=== PATIENT | female | born 1945 | race Caucasian/White ===

== ENCOUNTER 2021-01-25 08:45 | Emergency (ER) | payer MEDICARE, BC ==
[2021-01-25 08:56] VITALS: BP 177/76; PULSE 82
[2021-01-25] MEDS ORDERED: Aspirin 81 MG Tab.Chew PO ONE (08:58)
--- NOTE | 2021-01-25 10:27 | EDM.PDOC ---
ED HPI GENERAL MEDICAL PROBLEM - General Chief Complaint: Chest Pain Stated Complaint: CHEST PAIN Time Seen by Provider: 01/25/21 08:55 Source of Information: Reports: Patient History Limitations: Reports: No Limitations - History of Present Illness INITIAL COMMENTS - FREE TEXT/NARRATIVE: pt developed a tigh band around her chest. She felt weak and she was a little shakey. She did pull some weeds 2 days ago. She was not sob and she did not feel dizzy. Onset: Today, Sudden Duration: Hour(s): Location: Reports: Chest, Other (pt had a tight band around her chest. ) Associated Symptoms: Reports: Chest Pain, Weakness Chest Pain Score (Numeric/FACES): 6 - Related Data Allergies Allergy/AdvReac Type Severity Reaction Status Date / Time hydrocodone [From [place]] Allergy Vomiting Verified 01/25/21 08:56 Home Meds: Home Meds Ascorbic Acid 1,000 mg PO DAILY 04/12/14 [History] FLUoxetine HCl [Fluoxetine HCl] 20 mg PO DAILY 04/12/14 [History] Glucosam/Chond/Collagen/Hyalur [Glucosamine Chondroitin] 1 tab PO BID 04/12/14 [History] Levothyroxine Sodium [Levoxyl] 50 mcg PO DAILY 04/12/14 [History] Loratadine 10 mg PO DAILY 04/12/14 [History] Multivitamin [Multi-Vitamin Daily] 1 tab PO DAILY 04/12/14 [History] Niacin 500 mg PO DAILY 04/12/14 [History] [place]-3 Fatty Acids [[place]-3] 1,000 mg PO DAILY 04/12/14 [History] Pravastatin [Pravachol] 20 mg PO DAILY 04/12/14 [History] Vitamin B Complex [B Complex] 1 tab PO DAILY 04/12/14 [History] Calcium Carb, Citrate/Vit D3 [Calcium + D3 ER Tablet] 1 tab PO DAILY 04/16/20 [History] Cholecalciferol (Vitamin D3) [Vitamin D3] 2,000 units PO DAILY 04/16/20 [History] Magnesium 250 mg PO DAILY 04/16/20 [History] Ubidecarenone [Co Q-10] 100 mg PO DAILY 04/16/20 [History] Past Medical History HEENT History: Reports: Impaired Vision Cardiovascular History: Reports: High Cholesterol Respiratory History: Reports: Bronchitis, Recurrent Gastrointestinal History: Reports: Colon Polyp Genitourinary History: Reports: UTI, Recurrent [employer] REPRESENT[employer] History: Reports: Dysfunctional Uterine Bleeding, Musculoskeletal History: Reports: Back Pain, Chronic Psychiatric History: Reports: Depression Endocrine/Metabolic History: Reports: Hypothyroidism, Obesity/BMI 30+ Hematologic History: Reports: Blood Transfusion(s), Other (See Below) Other Hematologic History: needs blood warmed prior to transfusions - Infectious Disease History Infectious Disease History: Reports: Chicken Pox, Influenza, Measles, Mumps - Past Surgical History GI Surgical History: Reports: Cholecystectomy, Colonoscopy, Polypectomy Female Surgical History: Reports: Hysterectomy, Oophorectomy Musculoskeletal Surgical History: Reports: Arthroscopic Knee, Shoulder Surgery, Other (See Below) Other Musculoskeletal Surgeries/Procedures:: back surgery Social & Family History - Tobacco Use Tobacco Use Status *Q: Never Tobacco User ED ROS GENERAL - Review of Systems Review Of Systems: See Below Constitutional: Reports: Weakness HEENT: Reports: No Symptoms Respiratory: Reports: No Symptoms Cardiovascular: Reports: Chest Pain, Other (pt had a tight band around her chest. ) Endocrine: Reports: No Symptoms GI/Abdominal: Reports: No Symptoms : Reports: No Symptoms Musculoskeletal: Reports: No Symptoms Skin: Reports: No Symptoms Neurological: Reports: No Symptoms Psychiatric: Reports: Anxiety ED EXAM, GENERAL - Physical Exam Exam: See Below Free Text/Narrative:: pt developed a tight band around her chest. She felt weak and a little sweaty. She has no cardiac history. Exam Limited By: No Limitations General Appearance: Alert, Anxious, Mild Distress, Other (pt is not sweaty. ) Ears: Normal TMs Nose: Nasal Deformity Throat/Mouth: Normal Inspection Head: Atraumatic Neck: Normal Inspection Respiratory/Chest: No Respiratory Distress Cardiovascular: Regular Rate, Rhythm GI/Abdominal: Soft, Non-Tender (Female) Exam: Deferred Rectal (Female) Exam: Deferred Back Exam: Other (pt has marked tenderness by the rt scapula and shoulder area. ) Extremities: Normal Inspection Neurological: Alert, Oriented, Normal Cognition Course - Vital Signs Last Recorded V/S: Last Vital Signs Temp 36.3 C 01/25/21 08:53 Pulse 82 01/25/21 08:53 Resp 20 01/25/21 08:53 BP 177/76 H 01/25/21 08:53 Pulse Ox 96 01/25/21 08:53 - Orders/Labs/Meds Orders: Active Orders 24 hr Category Date Time Status EKG Documentation Completion [RC] ASDIRECTED Care 01/25/21 08:57 Active Chest 1V Frontal [CR] Stat Exams 01/25/21 08:57 Taken EKG 12 Lead [EK] Routine Ther 01/25/21 08:57 Ordered Labs: Laboratory Tests 01/25/21 01/25/21 01/25/21 Range/Units 08:55 08:55 08:55 WBC 7.5 (4.5-11.0) K/uL RBC 5.03 (3.30-5.50) M/uL Hgb 15.3 H (12.0-15.0) g/dL Hct 44.2 (36.0-48.0) % MCV 88 (80-98) fL MCH 30 (27-31) pg MCHC 35 (32-36) % Plt Count 271 (150-400) K/uL Neut % (Auto) 52.4 (36-66) % Lymph % (Auto) 32.9 (24-44) % Glad[place] % (Auto) 8.4 H (2-6) % Eos % (Auto) 5.4 H (2-4) % Baso % (Auto) 0.9 (0-1) % Sodium 142 (140-148) mmol/L Potassium 3.7 (3.6-5.2) mmol/L Chloride 104 (100-108) mmol/L Carbon Dioxide 27 (21-32) mmol/L Anion Gap 11.0 (5.0-14.0) mmol/L BUN 12 (7-18) mg/dL Creatinine 0.9 (0.6-1.0) mg/dL Est Cr Clr Drug Dosing 43.37 mL/min Estimated GFR (MDRD) > 60 (>60) Glucose 97 (74-106) mg/dL Calcium 9.8 (8.5-10.1) mg/dL Total Bilirubin 0.6 (0.2-1.0) mg/dL AST 23 (15-37) U/L ALT 29 (12-78) U/L Alkaline Phosphatase 83 (46-116) U/L Troponin I < 0.017 (0.000-0.056) ng/mL Total Protein 7.5 (6.4-8.2) g/dL Albumin 3.8 (3.4-5.0) g/dL Globulin 3.7 H (2.3-3.5) g/dL Albumin/Globulin Ratio 1.0 L (1.2-2.2) TSH, Ultra Sensitive (0.358-3.740) uIU/mL 01/25/21 Range/Units 08:55 WBC (4.5-11.0) K/uL RBC (3.30-5.50) M/uL Hgb (12.0-15.0) g/dL Hct (36.0-48.0) % MCV (80-98) fL MCH (27-31) pg MCHC (32-36) % Plt Count (150-400) K/uL Neut % (Auto) (36-66) % Lymph % (Auto) (24-44) % Gladwin % (Auto) (2-6) % Eos % (Auto) (2-4) % Baso % (Auto) (0-1) % Sodium (140-148) mmol/L Potassium (3.6-5.2) mmol/L Chloride (100-108) mmol/L Carbon Dioxide (21-32) mmol/L Anion Gap (5.0-14.0) mmol/L BUN (7-18) mg/dL Creatinine (0.6-1.0) mg/dL Est Cr Clr Drug Dosing mL/min Estimated GFR (MDRD) (>60) Glucose (74-106) mg/dL Calcium (8.5-10.1) mg/dL Total Bilirubin (0.2-1.0) mg/dL AST (15-37) U/L ALT (12-78) U/L Alkaline Phosphatase (46-116) U/L Troponin I (0.000-0.056) ng/mL Total Protein (6.4-8.2) g/dL Albumin (3.4-5.0) g/dL Globulin (2.3-3.5) g/dL Albumin/Globulin Ratio (1.2-2.2) TSH, Ultra Sensitive 2.308 (0.358-3.740) uIU/mL Meds: Medications Discontinued Medications Generic Name Dose Route Start Last Admin Trade Name Freq PRN Reason Stop Dose Admin Aspirin 324 mg 01/25/21 08:58 01/25/21 09:01 Aspirin 81 Mg Tab.Chew PO 01/25/21 08:59 324 mg ONETIME ONE Administration - Re-Assessments/Exams Free Text/Narrative Re-Assessment/Exam: 01/25/21 10:32 pt did not have sig changes in her ekg. Her trop was neg. She settled down and just had pain by the rt scapula area. Her other labs were normal. Departure - Departure Time of Disposition: 10:39 Disposition: Home, Self-Care 01 Condition: Fair Clinical Impression: Muscle spasm of right shoulder, Chest pain, atypical Referrals: Deja Grover PA [Primary Care Provider] - Care Plan Goals: moist heat followed by a cool pack to rt shoulder blade area, avoid pulling or lifting, rtc for a [employer] appt with Missy grover in the next 4-5 days. flexeril 10 mg hs for muscle spasm. Sepsis Event Note (ED) - Evaluation Sepsis Screening Result: No Definite Risk - Focused Exam Vital Signs: Vital Signs Temp Pulse Resp BP Pulse Ox 01/25/21 08:53 36.3 C 82 20 177/76 H 96 - My Orders Last 24 Hours: My Active Orders 01/25/21 08:57 EKG Documentation Completion [RC] ASDIRECTED Chest 1V Frontal [CR] Stat EKG 12 Lead [EK] Routine - Assessment/Plan Last 24 Hours: My Active Orders 01/25/21 08:57 EKG Documentation Completion [RC] ASDIRECTED Chest 1V Frontal [CR] Stat EKG 12 Lead [EK] Routine
--- NOTE | 2021-01-26 10:28 | CR ---
CHEST: Portable 01/25/2021 at 9:29 AM CLINICAL HISTORY:Chest pain COMPARISON:CT 01/16/2010 FINDINGS: The heart size, pulmonary vascularity and hilar structures are normal. No infiltrate effusion or pneumothorax is seen. IMPRESSION: No acute cardiopulmonary process.
== END 2021-01-25 10:50 | disposition home or self-care (01) ==
LOC: JP.ED 08:45
DX: R07.89 Other chest pain (principal); M62.838 Other muscle spasm; E78.00 Pure hypercholesterolemia, unspecified; E03.9 Hypothyroidism, unspecified; Z79.899 Other long term (current) drug therapy; Z88.5 Allergy status to narcotic agent; E66.9 Obesity, unspecified; Z68.38 Body mass index [BMI] 38.0-38.9, adult
CPT/HCPCS: 36415; 71045; 80053; 84443; 84484; 85025; 93005; 93018; 99285; A9270

== ENCOUNTER 2021-03-30 06:00 | Inpatient (IN) | payer MEDICARE, BC ==
[2021-03-30] MEDS ORDERED: Povidone-Iodine 10% Soln 118.25 ML Bottle ONE (06:38)
[2021-03-30] MEDS ORDERED: Lactated Ringers 1,000 ML IV SCH (07:00)
[2021-03-30] MEDS: Nozin Nasal Sanitizer NASBOTH SCH ×2 (07:03→20:17)
[2021-03-30] MEDS ORDERED: fentaNYL 100 MCG/2 ML SDV ONE (07:17)
[2021-03-30] MEDS ORDERED: Midazolam 1 MG/ML 2 ML SDV ONE (07:17)
[2021-03-30] MEDS ORDERED: Propofol 200 MG/20 ML SDV ONE ×3 (07:17→09:26)
[2021-03-30] MEDS ORDERED: ceFAZolin 2 GM in Premix Bag 1 BAG IV ONE (07:30)
[2021-03-30] MEDS ORDERED: Tranexamic Acid 1,000 MG in Sodium Chloride 0.9% 50 ML IV ONE (07:45)
[2021-03-30] MEDS ORDERED: Lactated Ringers 1,000 ML ONE (08:46)
[2021-03-30] MEDS ORDERED: Acetaminophen/oxyCODONE 325-5 MG Tab PO PRN (10:07)
[2021-03-30] MEDS ORDERED: Acetaminophen 325 MG Tab PO PRN (10:07)
[2021-03-30] MEDS ORDERED: ceFAZolin 1 GM in Sodium Chloride 0.9% 50 ML IV SCH (10:15)
--- NOTE | 2021-03-30 10:41 | CR ---
Knee 1V or 2V Lt CLINICAL HISTORY: TKA FINDINGS: Patient is status post total knee arthroplasty. Components appear well seated. There is intra-articular and subcutaneous air Impression: Status post total knee arthroplasty
[2021-03-30] MEDS: Sodium Chloride 0.9% 1,000 ML IV SCH ×2 (12:05→20:31)
[2021-03-30] MEDS: Morphine 2 MG/ML SYRINGE IVPUSH PRN ×2 (12:44→14:22)
[2021-03-30] MEDS: Ketorolac 30 MG/ML SDV IVPUSH PRN ×2 (12:47→21:57)
[2021-03-30] MEDS: Ondansetron 4 MG/2 ML SDV IVPUSH PRN (12:53)
[2021-03-30] MEDS: Acetaminophen/oxyCODONE 325-5 MG Tab PO PRN ×2 (15:12→20:14)
[2021-03-30] MEDS: ceFAZolin 1 GM in Premix Bag 1 BAG IV SCH ×2 (15:43→23:54)
[2021-03-30] MEDS ORDERED: Calcium Carbonate 500 MG Tab.Chew PO PRN (18:14)
[2021-03-30] MEDS: Docusate Sodium 100 MG Cap PO SCH (20:18)
[2021-03-30] MEDS: Pravastatin 20 MG Tab PO SCH (20:18)
[2021-03-30] MEDS: FLUoxetine 20 MG Cap PO SCH (20:18)
[2021-03-30] MEDS ORDERED: Nozin Nasal Sanitizer NASBOTH SCH (21:00)
[2021-03-31] MEDS: Acetaminophen/oxyCODONE 325-5 MG Tab PO PRN ×4 (03:29→16:56)
[2021-03-31] MEDS: ceFAZolin 1 GM in Premix Bag 1 BAG IV SCH (07:56)
[2021-03-31] MEDS: Levothyroxine 50 MCG Tab PO SCH (07:56)
--- NOTE | 2021-03-31 08:29 | PCM.SURGPN ---
- General Info Date of Service: 03/31/21 Date of Surgery/Procedure: 03/30/21 POD#: 1 Post-Op Diagnosis: left knee osteoarthritis Admission Diagnosis/Problem: Knee joint operation Functional Status: Reports: Pain Controlled, Tolerating Diet, Incentive Spirometry - Review of Systems General: Denies: Fever, Fatigue, Chills, Night Sweats Pulmonary: Denies: Shortness of Breath Cardiovascular: Denies: Chest Pain, Palpitations Musculoskeletal: Reports: Leg Pain (left ), Joint Pain (left knee ), Joint Swelling (left knee ) Neurological: Reports: No Symptoms Psychiatric: Reports: No Symptoms - Patient Data Vitals - Most Recent: Last Vital Signs Temp 98.2 F 03/31/21 07:49 Pulse 65 03/31/21 07:49 Resp 12 03/31/21 07:49 BP 149/65 H 03/31/21 07:49 Pulse Ox 92 L 03/31/21 07:49 Weight - Most Recent: 206 lb 1.6 oz I&O - Last 24 Hours: Intake & Output 03/30/21 03/31/21 03/31/21 22:59 06:59 14:59 Intake Total 1598 50 Output Total 125 1650 Balance 1473 -1650 50 Lab Results Last 24 Hrs: Laboratory Results - last 24 hr 03/31/21 Range/Units 05:40 WBC 5.9 (4.5-11.0) K/uL RBC 4.19 (3.30-5.50) M/uL Hgb 12.8 D (12.0-15.0) g/dL Hct 38.3 (36.0-48.0) % MCV 91 (80-98) fL MCH 31 (27-31) pg MCHC 33 (32-36) % Plt Count 194 (150-400) K/uL Med Orders - Current: Current Medications Acetaminophen (Acetaminophen 325 Mg Tab) 650 mg PO Q4H PRN PRN Reason: Pain/Fever Ascorbic Acid (Ascorbic Acid 500 Mg Tab) 1,000 mg PO DAILY [facility] Bandage/Support Products (Nozin Nasal Warehouse Worker) 1 applic NASBOTH BID SUPRIYA Stop: 04/05/21 21:01 Last Admin: 03/30/21 20:17 Dose: 1 applic Documented by: Calcium Carbonate/Glycine (Calcium Carbonate 500 Mg Tab.Chew) 1,000 mg PO Q2H PRN PRN Reason: Indigestion Docusate Sodium (Docusate Sodium 100 Mg Cap) 100 mg PO BID [facility] Last Admin: 03/30/21 20:18 Dose: 100 mg Documented by: Enoxaparin Sodium (Enoxaparin 30 Mg/0.3 Ml Syringe) 30 mg SUBCUT DAILY [facility] Fluoxetine HCl (Fluoxetine 20 Mg Cap) 20 mg PO BEDTIME [facility] Last Admin: 03/30/21 20:18 Dose: 20 mg Documented by: Sodium Chloride (Normal Saline) 1,000 mls @ 125 mls/hr IV ASDIRECTED [facility] Last Admin: 03/30/21 20:31 Dose: 125 mls/hr Documented by: Cefazolin Sodium/Dextrose 1 gm (/ Premix) 50 mls @ 100 mls/hr IV Q8H [facility] Stop: 03/31/21 08:29 Last Admin: 03/31/21 07:56 Dose: 100 mls/hr Documented by: Ketorolac Tromethamine (Ketorolac 30 Mg/Ml Sdv) 15 mg IVPUSH Q8H PRN PRN Reason: Breakthrough Pain Stop: 04/04/21 10:08 Last Admin: 03/30/21 21:57 Dose: 15 mg Documented by: Levothyroxine Sodium (Levothyroxine 50 Mcg Tab) 50 mcg PO ACBREAKFAST [facility] Last Admin: 03/31/21 07:56 Dose: 50 mcg Documented by: Loratadine (Loratadine 10 Mg Tab) 10 mg PO DAILY [facility] Magnesium Oxide (Magnesium Oxide 400 Mg Tab) 200 mg PO DAILY [facility] Morphine Sulfate (Morphine 2 Mg/Ml Syringe) 1 mg IVPUSH Q1H PRN PRN Reason: Breakthrough Pain Last Admin: 03/30/21 14:22 Dose: 1 mg Documented by: Niacin (Niacin 250 Mg Tab.Er) 500 mg PO DAILY [facility] Ubidecarenone [Co Q- 10] 100 Mg Cap (Ptom ) 1 mg PO DAILY [facility] Ondansetron HCl (Ondansetron 4 Mg/2 Ml Sdv) 4 mg IVPUSH Q4H PRN PRN Reason: Nausea/Vomiting Last Admin: 03/30/21 12:53 Dose: 4 mg Documented by: Oxycodone/Acetaminophen (Acetaminophen/Oxycodone 325-5 Mg Tab) 1 - 2 tab PO Q4H PRN PRN Reason: Pain Last Admin: 03/31/21 07:57 Dose: 2 tab Documented by: Pravastatin Sodium (Pravastatin 20 Mg Tab) 20 mg PO BEDTIME [facility] Last Admin: 03/30/21 20:18 Dose: 20 mg Documented by: Tramadol HCl (Tramadol 50 Mg Tab) 50 mg PO Q6H PRN PRN Reason: Pain (mild 1-3) Discontinued Medications Fentanyl (Fentanyl 100 Mcg/2 Ml Sdv) Confirm Administered Dose 100 mcg .ROUTE .STK-MED ONE Stop: 03/30/21 07:18 Cefazolin Sodium/Dextrose 2 gm (/ Premix) 50 mls @ 100 mls/hr IV ONETIME ONE Stop: 03/30/21 07:59 Last Admin: 03/30/21 08:05 Dose: 100 mls/hr Documented by: Lactated Ringer's (Ringers, Lactated) 1,000 mls @ 75 mls/hr IV ASDIRECTED [facility] Last Admin: 03/30/21 07:04 Dose: 75 mls/hr Documented by: Tranexamic Acid 1,000 mg/ (Sodium Chloride) 60 mls @ 240 mls/hr IV ONETIME ONE Stop: 03/30/21 07:59 Last Admin: 03/30/21 08:35 Dose: 240 mls/hr Documented by: Lactated Ringer's (Ringers, Lactated) Confirm Administered Dose 1,000 mls @ as directed .ROUTE .STK-MED ONE Stop: 03/30/21 08:47 Midazolam HCl (Midazolam 1 Mg/Ml 2 Ml Sdv) Confirm Administered Dose 2 mg .ROUTE .STK-MED ONE Stop: 03/30/21 07:18 Oxycodone/Acetaminophen (Acetaminophen/Oxycodone 325-5 Mg Tab) 1 tab PO Q4H PRN PRN Reason: Pain Last Admin: 03/30/21 11:10 Dose: 1 tab Documented by: Povidone Iodine (Povidone-Iodine 10% Soln 118.25 Ml Bottle) Confirm Administered Dose 1 ml .ROUTE .STK-MED ONE Stop: 03/30/21 06:39 Last Admin: 03/30/21 08:50 Dose: 30 ml Documented by: Propofol (Propofol 200 Mg/20 Ml Sdv) Confirm Administered Dose 200 mg .ROUTE .STK-MED ONE Stop: 03/30/21 07:18 Propofol (Propofol 200 Mg/20 Ml Sdv) Confirm Administered Dose 200 mg .ROUTE .STK-MED ONE Stop: 03/30/21 07:20 Propofol (Propofol 200 Mg/20 Ml Sdv) Confirm Administered Dose 200 mg .ROUTE .STK-MED ONE Stop: 03/30/21 09:27 - Exam Wound/Incisions: Dressing Dry and Intact, No Drainage Quality Assessment: Urine Catheter, DVT Prophylaxis General: Alert, Oriented, Cooperative, No Acute Distress Extremities: Pedal Edema, Joint Swelling (left knee ), Leg Pain (left ), Limited Range of Motion (due to postoperative swelling, dressing, and pain of LLE ), Other (LLE dorsiflexion: 4/5, plantar flexion: 5/5 ). No: Teresita's Sign Skin: Dry, Intact Neurological: No New Focal Deficit Psy/Mental Status: Alert, Normal Affect, Normal Mood Sepsis Event Note - Evaluation Sepsis Screening Result: No Definite Risk - Focused Exam Vital Signs: Vital Signs Temp Temp Pulse Resp BP Pulse Ox 03/31/21 07:49 98.2 F 65 12 149/65 H 92 L 03/31/21 03:41 98.4 F 67 18 147/64 H 96 03/30/21 22:25 99.6 F 73 18 161/72 H 95 - Problem List & Annotations (1) Status post total left knee replacement SNOMED Code(s): 1665679398182, 1253074679257 Code(s): Z96.652 - PRESENCE OF LEFT ARTIFICIAL KNEE JOINT Status: Acute Current Visit: Yes - Problem List Review Problem List Initiated/Reviewed/Updated: Yes - My Orders Last 24 Hours: Active Orders 24 hr Category Date Time Status Admission Status [Patient Status] [ADT] Routine ADT 03/31/21 08:18 Ordered Ambulate [RC] QID Care 03/30/21 10:07 Active Antiembolic Devices [RC] .Routine Care 03/30/21 10:08 Active Head of Bed Elevation [RC] ASDIRECTED Care 03/30/21 10:07 Active Intake and Output [RC] QSHIFT Care 03/30/21 10:07 Active May Shower [RC] ASDIRECTED Care 03/30/21 10:07 Active Neurovascular Check [RC] Q4H Care 03/30/21 10:07 Active Notify Provider Vital Signs [RC] ASDIRECTED Care 03/30/21 10:07 Active Oxygen Therapy [RC] PRN Care 03/30/21 10:07 Active RT Incentive Spirometry [RC] Q1HWA Care 03/30/21 10:07 Active Up to Chair [RC] QID Care 03/30/21 10:07 Active Vital Signs [RC] PER UNIT ROUTINE Care 03/30/21 10:07 Active Wound Care [RC] Q12H Care 03/30/21 10:07 Active Consult to Case Management/[employer] [CONS] Cons 03/30/21 10:07 Active Routine OT Evaluation and Treatment [CONS] Routine Cons 03/30/21 10:07 Active PT Evaluation and Treatment [CONS] Routine Cons 03/30/21 10:07 Active PT Evaluation and Treatment [CONS] Routine Cons 03/30/21 10:07 Active Regular Diet [DIET] Diet 03/30/21 Lunch Active Acetaminophen [TylenoL] Med 03/30/21 10:07 Active 650 mg PO Q4H PRN Acetaminophen/oxyCODONE [Percocet 325-5 MG] Med 03/30/21 14:55 Active 1 - 2 tab PO Q4H PRN Ascorbic Acid [Vitamin C] Med 03/31/21 09:00 Active 1,000 mg PO DAILY Calcium Carbonate [Tums] Med 03/30/21 18:14 Active 1,000 mg PO Q2H PRN Docusate Sodium [Colace] Med 03/30/21 21:00 Active 100 mg PO BID Enoxaparin [Lovenox] Med 03/31/21 09:00 Active 30 mg SUBCUT DAILY FLUoxetine [PROzac] Med 03/30/21 21:00 Active 20 mg PO BEDTIME Ketorolac [Toradol] Med 03/30/21 10:07 Active 15 mg IVPUSH Q8H PRN Levothyroxine [Synthroid] Med 03/31/21 07:30 Active 50 mcg PO ACBREAKFAST Loratadine [Claritin] Med 03/31/21 09:00 Active 10 mg PO DAILY Magnesium Oxide Med 03/31/21 09:00 Active 200 mg PO DAILY Morphine Med 03/30/21 10:07 Active 1 mg IVPUSH Q1H PRN Niacin [Slo-Niacin] Med 03/31/21 09:00 Active 500 mg PO DAILY Ondansetron [Zofran] Med 03/30/21 10:07 Active 4 mg IVPUSH Q4H PRN Pravastatin [Pravachol] Med 03/30/21 21:00 Active 20 mg PO BEDTIME Sodium Chloride 0.9% [Normal Saline] 1,000 ml Med 03/30/21 10:15 Active IV ASDIRECTED Ubidecarenone [Co Q-10] Med 03/31/21 09:00 Active 1 mg PO DAILY ceFAZolin [Ancef 1 GM/50 ML] 1 gm Med 03/30/21 16:00 Active Premix Bag 1 bag IV Q8H traMADol [Ultram] Med 03/30/21 10:07 Active 50 mg PO Q6H PRN Antiembolic Hose [OM.PC] Routine Oth 03/30/21 10:07 Ordered DVT/VTE Prophylaxis Reflex [OM.PC] Routine Oth 03/30/21 10:07 Ordered Ice Therapy [OM.PC] Per Unit Routine Oth 03/30/21 10:07 Ordered Medication Continuation Instructions [OM.PC] Per Unit Oth 03/30/21 10:07 Ordered Routine Oral Care [OM.PC] Routine Oth 03/30/21 10:07 Ordered SCD [Sequential Compression Device] [OM.PC] Routine Oth 03/30/21 10:32 Ordered Sequential Compression Device [OM.PC] Routine Oth 03/30/21 10:07 Ordered Weight bearing status [OM.PC] Routine Oth 03/30/21 10:31 Ordered Resuscitation Status Routine Resus Stat 03/30/21 10:07 Ordered Medication Orders Acetaminophen (Acetaminophen 325 Mg Tab) 650 mg PO Q4H PRN PRN Reason: Pain/Fever Ascorbic Acid (Ascorbic Acid 500 Mg Tab) 1,000 mg PO DAILY [facility] Bandage/Support Products (Nozin Nasal Warehouse Worker) 1 applic NASBOTH BID [facility] Stop: 04/05/21 21:01 Last Admin: 03/30/21 20:17 Dose: 1 applic Documented by: Admin: 03/30/21 07:03 Dose: 1 applic Documented by: ZHANG Calcium Carbonate/Glycine (Calcium Carbonate 500 Mg Tab.Chew) 1,000 mg PO Q2H PRN PRN Reason: Indigestion Docusate Sodium (Docusate Sodium 100 Mg Cap) 100 mg PO BID [facility] Last Admin: 03/30/21 20:18 Dose: 100 mg Documented by: GONZALEZ Enoxaparin Sodium (Enoxaparin 30 Mg/0.3 Ml Syringe) 30 mg SUBCUT DAILY [facility] Fluoxetine HCl (Fluoxetine 20 Mg Cap) 20 mg PO BEDTIME [facility] Last Admin: 03/30/21 20:18 Dose: 20 mg Documented by: GONZALEZ Sodium Chloride (Normal Saline) 1,000 mls @ 125 mls/hr IV ASDIRECTED [facility] Last Admin: 03/30/21 20:31 Dose: 125 mls/hr Documented by: Infusion: 03/30/21 20:05 Dose: 125 mls/hr Documented by: Admin: 03/30/21 12:05 Dose: 125 mls/hr Documented by: RIA Cefazolin Sodium/Dextrose 1 gm (/ Premix) 50 mls @ 100 mls/hr IV Q8H [facility] Stop: 03/31/21 08:29 Last Admin: 03/31/21 07:56 Dose: 100 mls/hr Documented by: Infusion: 03/31/21 00:24 Dose: 100 mls/hr Documented by: Admin: 03/30/21 23:54 Dose: 100 mls/hr Documented by: Infusion: 03/30/21 16:13 Dose: 100 mls/hr Documented by: Admin: 03/30/21 15:43 Dose: 100 mls/hr Documented by: RIA Ketorolac Tromethamine (Ketorolac 30 Mg/Ml Sdv) 15 mg IVPUSH Q8H PRN PRN Reason: Breakthrough Pain Stop: 04/04/21 10:08 Last Admin: 03/30/21 21:57 Dose: 15 mg Documented by: Admin: 03/30/21 12:47 Dose: 15 mg Documented by: NITA Levothyroxine Sodium (Levothyroxine 50 Mcg Tab) 50 mcg PO ACBREAKFAST [facility] Last Admin: 03/31/21 07:56 Dose: 50 mcg Documented by: ARTURO Loratadine (Loratadine 10 Mg Tab) 10 mg PO DAILY [facility] Magnesium Oxide (Magnesium Oxide 400 Mg Tab) 200 mg PO DAILY [facility] Morphine Sulfate (Morphine 2 Mg/Ml Syringe) 1 mg IVPUSH Q1H PRN PRN Reason: Breakthrough Pain Last Admin: 03/30/21 14:22 Dose: 1 mg Documented by: Admin: 03/30/21 12:44 Dose: 1 mg Documented by: NITA Niacin (Niacin 250 Mg Tab.Er) 500 mg PO DAILY [facility] Ubidecarenone [Co Q- 10] 100 Mg Cap (Ptom ) 1 mg PO DAILY [facility] Ondansetron HCl (Ondansetron 4 Mg/2 Ml Sdv) 4 mg IVPUSH Q4H PRN PRN Reason: Nausea/Vomiting Last Admin: 03/30/21 12:53 Dose: 4 mg Documented by: NITA Oxycodone/Acetaminophen (Acetaminophen/Oxycodone 325-5 Mg Tab) 1 - 2 tab PO Q4H PRN PRN Reason: Pain Last Admin: 03/31/21 07:57 Dose: 2 tab Documented by: Admin: 03/31/21 03:29 Dose: 2 tab Documented by: Admin: 03/30/21 20:14 Dose: 2 tab Documented by: Admin: 03/30/21 15:12 Dose: 2 tab Documented by: RIA Pravastatin Sodium (Pravastatin 20 Mg Tab) 20 mg PO BEDTIME [facility]PR[facility] Last Admin: 03/30/21 20:18 Dose: 20 mg Documented by: GONZALEZ Tramadol HCl (Tramadol 50 Mg Tab) 50 mg PO Q6H PRN PRN Reason: Pain (mild 1-3) - Assessment Assessment (Free Text/Narrative):: Patient is a pleasant 76-year-old female, status post left total knee arthroplasty, postop day #1. Patient tolerated surgery well. No acute events overnight. Patient's systolic pressures have been elevated, fluctuating from 140s-160s. Was requiring 2L O2 yesterday following surgery to maintain oxygen saturations >90%. Has since been weaned to RA and maintaining oxygen saturation >90%. Patient has been using incentive spirometer. Postop day #1 hemoglobin declined to 12.8. Patient is asymptomatic with this; denied lightheadedness, dyspnea, malaise, nor vision changes. Patient also denied chest pain, palpitations, subjective fever, and chills this morning. Pain has been well controlled thus far with 5 mg - 325 mg Percocet every 4 hours and alternating morphine or toradol as needed for breakthrough pain. Patient had one episode of nausea yesterday following anesthesia. No further episodes of nausea or emesis since. Tolerating regular diet well. Did work with physical therapy yesterday after surgery. Transferred to edge of bed and sat here for a few minutes. Has not ambulated or transferred out of bed yet. Denied numbness or tingling to LLE. Denied calf pain. Does endorse heaviness of the left knee from postoperative swelling. Patient requires inpatient status at this time for additional physical therapy services to progress functional mobility of left lower extremity prior to discharge home. Also requires additional pain control with IV medications at this time; will need to have pain adequately controlled with PO medications prior to discharge. Plan: * Anticipate daily participation in physical and occupational therapy services to progress ambulation and functional mobility of LLE. * Continue with current pain regimen, will need to transition to PO medications only prior to discharge. * Continue with 30 mg Lovenox subcutaneous daily for chemical DVT/VTE prophylaxis and bilateral lower extremity SCDs for Mechanical prophylaxis. * Discontinue IV maintenance fluids, as oral intake improved and blood pressures have been slightly elevated. Continue to monitor vitals q4 hrs. * Pending progress with physical therapy this morning may discontinue mancuso catheter if ambulation abilities progress. * Dressing change will be performed on postop day #2 by orthopedic provider. * Anticipate discharge to home with home health services when patient is medically stable, ambulation and functional mobility of LLE improve, and pain controlled with PO medications. vacation planner is aware and [facility].
[2021-03-31] MEDS ORDERED: Non-Formulary Medication 1 Each (Magnesium [Magnesium] 250 MG Tablet) PO SCH (09:00)
[2021-03-31] MEDS ORDERED: Non-Formulary Medication 1 Each (Niacin [Niacin] 500 MG Tablet) PO SCH (09:00)
[2021-03-31] MEDS ORDERED: Levothyroxine 25 MCG Tab PO SCH (09:00)
[2021-03-31] MEDS: Ketorolac 30 MG/ML SDV IVPUSH PRN (09:37)
[2021-03-31] MEDS: Nozin Nasal Sanitizer NASBOTH SCH ×2 (09:37→20:57)
[2021-03-31] MEDS: Enoxaparin 30 MG/0.3 ML Syringe SUBCUT SCH (09:38)
[2021-03-31] MEDS: Docusate Sodium 100 MG Cap PO SCH ×2 (09:38→20:59)
[2021-03-31] MEDS: Loratadine 10 MG Tab PO SCH (09:38)
[2021-03-31] MEDS: Ascorbic Acid 500 MG Tab PO SCH (09:39)
[2021-03-31] MEDS: UBIDECARENONE 100 MG PO SCH (09:39)
[2021-03-31] MEDS: Magnesium Oxide 400 MG Tab PO SCH (09:39)
[2021-03-31] MEDS: Niacin 250 MG Tab.ER PO SCH (09:39)
[2021-03-31] MEDS: Ondansetron 4 MG/2 ML SDV IVPUSH PRN (18:59)
[2021-03-31] MEDS: FLUoxetine 20 MG Cap PO SCH (21:00)
[2021-03-31] MEDS: Pravastatin 20 MG Tab PO SCH (21:00)
[2021-04-01] MEDS: Acetaminophen/oxyCODONE 325-5 MG Tab PO PRN ×3 (04:11→12:03)
[2021-04-01] MEDS: Levothyroxine 50 MCG Tab PO SCH (07:40)
--- NOTE | 2021-04-01 07:42 | PCM.SURGPN ---
- General Info Date of Service: 04/01/21 Date of Surgery/Procedure: 03/30/21 POD#: 2 Post-Op Diagnosis: left knee osteoarthritis Admission Diagnosis/Problem: Knee joint operation Functional Status: Reports: Pain Controlled, Tolerating Diet, Ambulating (with FWW, SBA), Incentive Spirometry - Review of Systems General: Denies: Fever, Weakness, Fatigue, Malaise, Chills, Night Sweats Pulmonary: Denies: Shortness of Breath Cardiovascular: Denies: Chest Pain, Palpitations Gastrointestinal: Reports: Decreased Appetite Musculoskeletal: Reports: Leg Pain (left ), Joint Pain (left knee ), Joint Swelling (left knee ) Skin: Reports: Bruising (left knee, thigh) Neurological: Reports: Confusion Psychiatric: Reports: Confusion - Patient Data Vitals - Most Recent: Last Vital Signs Temp 98.0 F 04/01/21 07:18 Pulse 88 04/01/21 07:18 Resp 16 04/01/21 07:18 BP 135/55 L 04/01/21 07:18 Pulse Ox 94 L 04/01/21 07:18 Weight - Most Recent: 206 lb 1.586 oz I&O - Last 24 Hours: Intake & Output 03/31/21 04/01/21 04/01/21 22:59 06:59 14:59 Intake Total 1060 800 Output Total 740 1075 Balance 320 -275 Med Orders - Current: Current Medications Acetaminophen (Acetaminophen 325 Mg Tab) 650 mg PO Q4H PRN PRN Reason: Pain/Fever Ascorbic Acid (Ascorbic Acid 500 Mg Tab) 1,000 mg PO DAILY [facility] Last Admin: 03/31/21 09:39 Dose: Not Given Documented by: Bandage/Support Products (Nozin Nasal Rent And Miscellaneous Remittance Clerk) 1 applic NASBOTH BID [facility] Stop: 04/05/21 21:01 Last Admin: 03/31/21 20:57 Dose: 1 applic Documented by: Calcium Carbonate/Glycine (Calcium Carbonate 500 Mg Tab.Chew) 1,000 mg PO Q2H PRN PRN Reason: Indigestion Docusate Sodium (Docusate Sodium 100 Mg Cap) 100 mg PO BID [facility] Last Admin: 03/31/21 20:59 Dose: 100 mg Documented by: Enoxaparin Sodium (Enoxaparin 30 Mg/0.3 Ml Syringe) 30 mg SUBCUT DAILY [facility] Last Admin: 03/31/21 09:38 Dose: 30 mg Documented by: Fluoxetine HCl (Fluoxetine 20 Mg Cap) 20 mg PO BEDTIME [facility] Last Admin: 03/31/21 21:00 Dose: 20 mg Documented by: Ketorolac Tromethamine (Ketorolac 30 Mg/Ml Sdv) 15 mg IVPUSH Q8H PRN PRN Reason: Breakthrough Pain Stop: 04/04/21 10:08 Last Admin: 03/31/21 09:37 Dose: 15 mg Documented by: Levothyroxine Sodium (Levothyroxine 50 Mcg Tab) 50 mcg PO ACBREAKFAST [facility] Last Admin: 03/31/21 07:56 Dose: 50 mcg Documented by: Loratadine (Loratadine 10 Mg Tab) 10 mg PO DAILY [facility] Last Admin: 03/31/21 09:38 Dose: 10 mg Documented by: Magnesium Oxide (Magnesium Oxide 400 Mg Tab) 200 mg PO DAILY [facility] Last Admin: 03/31/21 09:39 Dose: Not Given Documented by: Morphine Sulfate (Morphine 2 Mg/Ml Syringe) 1 mg IVPUSH Q1H PRN PRN Reason: Breakthrough Pain Last Admin: 03/30/21 14:22 Dose: 1 mg Documented by: Niacin (Niacin 250 Mg Tab.Er) 500 mg PO DAILY [facility] Last Admin: 03/31/21 09:39 Dose: Not Given Documented by: Ubidecarenone [Co Q- 10] 100 Mg Cap (Ptom ) 1 mg PO DAILY [facility] Last Admin: 03/31/21 09:39 Dose: Not Given Documented by: Ondansetron HCl (Ondansetron 4 Mg/2 Ml Sdv) 4 mg IVPUSH Q4H PRN PRN Reason: Nausea/Vomiting Last Admin: 03/31/21 18:59 Dose: 4 mg Documented by: Oxycodone/Acetaminophen (Acetaminophen/Oxycodone 325-5 Mg Tab) 1 - 2 tab PO Q4H PRN PRN Reason: Pain Last Admin: 04/01/21 04:11 Dose: 1 tab Documented by: Pravastatin Sodium (Pravastatin 20 Mg Tab) 20 mg PO BEDTIME [facility] Last Admin: 03/31/21 21:00 Dose: 20 mg Documented by: Tramadol HCl (Tramadol 50 Mg Tab) 50 mg PO Q6H PRN PRN Reason: Pain (mild 1-3) Discontinued Medications Fentanyl (Fentanyl 100 Mcg/2 Ml Sdv) Confirm Administered Dose 100 mcg .ROUTE .STK-MED ONE Stop: 03/30/21 07:18 Cefazolin Sodium/Dextrose 2 gm (/ Premix) 50 mls @ 100 mls/hr IV ONETIME ONE Stop: 03/30/21 07:59 Last Admin: 03/30/21 08:05 Dose: 100 mls/hr Documented by: Lactated Ringer's (Ringers, Lactated) 1,000 mls @ 75 mls/hr IV ASDIRECTED [facility] Last Admin: 03/30/21 07:04 Dose: 75 mls/hr Documented by: Tranexamic Acid 1,000 mg/ (Sodium Chloride) 60 mls @ 240 mls/hr IV ONETIME ONE Stop: 03/30/21 07:59 Last Admin: 03/30/21 08:35 Dose: 240 mls/hr Documented by: Lactated Ringer's (Ringers, Lactated) Confirm Administered Dose 1,000 mls @ as directed .ROUTE .STK-MED ONE Stop: 03/30/21 08:47 Sodium Chloride (Normal Saline) 1,000 mls @ 125 mls/hr IV ASDIRECTED [facility] Last Admin: 03/30/21 20:31 Dose: 125 mls/hr Documented by: Cefazolin Sodium/Dextrose 1 gm (/ Premix) 50 mls @ 100 mls/hr IV Q8H [facility] Stop: 03/31/21 08:29 Last Admin: 03/31/21 07:56 Dose: 100 mls/hr Documented by: Midazolam HCl (Midazolam 1 Mg/Ml 2 Ml Sdv) Confirm Administered Dose 2 mg .ROUTE .STK-MED ONE Stop: 03/30/21 07:18 Oxycodone/Acetaminophen (Acetaminophen/Oxycodone 325-5 Mg Tab) 1 tab PO Q4H PRN PRN Reason: Pain Last Admin: 03/30/21 11:10 Dose: 1 tab Documented by: Povidone Iodine (Povidone-Iodine 10% Soln 118.25 Ml Bottle) Confirm Administered Dose 1 ml .ROUTE .STK-MED ONE Stop: 03/30/21 06:39 Last Admin: 03/30/21 08:50 Dose: 30 ml Documented by: Propofol (Propofol 200 Mg/20 Ml Sdv) Confirm Administered Dose 200 mg .ROUTE .STK-MED ONE Stop: 03/30/21 07:18 Propofol (Propofol 200 Mg/20 Ml Sdv) Confirm Administered Dose 200 mg .ROUTE .STK-MED ONE Stop: 03/30/21 07:20 Propofol (Propofol 200 Mg/20 Ml Sdv) Confirm Administered Dose 200 mg .ROUTE . STK-MED ONE Stop: 03/30/21 09:27 - Exam Wound/Incisions: Healing Well, Dressing Dry and Intact, No Drainage Quality Assessment: DVT Prophylaxis General: Alert, Cooperative, No Acute Distress Extremities: Normal Capillary Refill, Pedal Edema, Joint Swelling (left knee ), Leg Pain (left ), Limited Range of Motion (due to postoperative pain and swelling in left knee ). No: Teresita's Sign Skin: Warm, Dry, Intact, Ecchymosis Neurological: No New Focal Deficit Psy/Mental Status: Alert, Normal Affect, Normal Mood Sepsis Event Note - Evaluation Sepsis Screening Result: No Definite Risk - Focused Exam Vital Signs: Vital Signs Temp Pulse Resp BP Pulse Ox 04/01/21 07:18 98.0 F 88 16 135/55 L 94 L 04/01/21 04:00 100.3 F 74 16 141/61 H 97 04/01/21 00:00 99.6 F 87 18 138/71 97 03/31/21 21:02 95 03/31/21 20:55 99 F 83 18 140/51 L 88 L - Problem List & Annotations (1) Status post total left knee replacement SNOMED Code(s): 6993375895395, 7633088382339 Code(s): Z96.652 - PRESENCE OF LEFT ARTIFICIAL KNEE JOINT Status: Acute Current Visit: Yes - Problem List Review Problem List Initiated/Reviewed/Updated: Yes - My Orders Last 24 Hours: Active Orders 24 hr Category Date Time Status Admission Status [Patient Status] [ADT] Routine ADT 03/31/21 08:18 Active Ascorbic Acid [Vitamin C] Med 03/31/21 09:00 Active 1,000 mg PO DAILY Enoxaparin [Lovenox] Med 03/31/21 09:00 Active 30 mg SUBCUT DAILY Levothyroxine [Synthroid] Med 03/31/21 07:30 Active 50 mcg PO ACBREAKFAST Loratadine [Claritin] Med 03/31/21 09:00 Active 10 mg PO DAILY Magnesium Oxide Med 03/31/21 09:00 Active 200 mg PO DAILY Niacin [Slo-Niacin] Med 03/31/21 09:00 Active 500 mg PO DAILY Ubidecarenone [Co Q-10] Med 03/31/21 09:00 Active 1 mg PO DAILY Convert IV to Saline Lock [OM.PC] Routine Oth 03/31/21 15:57 Ordered Medication Orders Acetaminophen (Acetaminophen 325 Mg Tab) 650 mg PO Q4H PRN PRN Reason: Pain/Fever Ascorbic Acid (Ascorbic Acid 500 Mg Tab) 1,000 mg PO DAILY [facility] Last Admin: 03/31/21 09:39 Dose: Not Given Documented by: ARTURO Bandage/Support Products (Nozin Nasal Rent And Miscellaneous Remittance Clerk) 1 applic NASBOTH BID [facility] Stop: 04/05/21 21:01 Last Admin: 03/31/21 20:57 Dose: 1 applic Documented by: Admin: 03/31/21 09:37 Dose: 1 applic Documented by: Admin: 03/30/21 20:17 Dose: 1 applic Documented by: Admin: 03/30/21 07:03 Dose: 1 applic Documented by: ZHANG Calcium Carbonate/Glycine (Calcium Carbonate 500 Mg Tab.Chew) 1,000 mg PO Q2H PRN PRN Reason: Indigestion Docusate Sodium (Docusate Sodium 100 Mg Cap) 100 mg PO BID [facility] Last Admin: 03/31/21 20:59 Dose: 100 mg Documented by: Admin: 03/31/21 09:38 Dose: 100 mg Documented by: Admin: 03/30/21 20:18 Dose: 100 mg Documented by: GONZALEZ Enoxaparin Sodium (Enoxaparin 30 Mg/0.3 Ml Syringe) 30 mg SUBCUT DAILY [facility] Last Admin: 03/31/21 09:38 Dose: 30 mg Documented by: ARTURO Fluoxetine HCl (Fluoxetine 20 Mg Cap) 20 mg PO BEDTIME [facility] Last Admin: 03/31/21 21:00 Dose: 20 mg Documented by: Admin: 03/30/21 20:18 Dose: 20 mg Documented by: GONZALEZ Ketorolac Tromethamine (Ketorolac 30 Mg/Ml Sdv) 15 mg IVPUSH Q8H PRN PRN Reason: Breakthrough Pain Stop: 04/04/21 10:08 Last Admin: 03/31/21 09:37 Dose: 15 mg Documented by: Admin: 03/30/21 21:57 Dose: 15 mg Documented by: Admin: 03/30/21 12:47 Dose: 15 mg Documented by: NITA Levothyroxine Sodium (Levothyroxine 50 Mcg Tab) 50 mcg PO ACBREAKFAST [facility] Last Admin: 03/31/21 07:56 Dose: 50 mcg Documented by: ARTURO Loratadine (Loratadine 10 Mg Tab) 10 mg PO DAILY [facility] Last Admin: 03/31/21 09:38 Dose: 10 mg Documented by: ARTURO Magnesium Oxide (Magnesium Oxide 400 Mg Tab) 200 mg PO DAILY [facility] Last Admin: 03/31/21 09:39 Dose: Not Given Documented by: ARTURO Morphine Sulfate (Morphine 2 Mg/Ml Syringe) 1 mg IVPUSH Q1H PRN PRN Reason: Breakthrough Pain Last Admin: 03/30/21 14:22 Dose: 1 mg Documented by: Admin: 03/30/21 12:44 Dose: 1 mg Documented by: NITA Niacin (Niacin 250 Mg Tab.Er) 500 mg PO DAILY [facility] Last Admin: 03/31/21 09:39 Dose: Not Given Documented by: ARTURO Ubidecarenone [Co Q- 10] 100 Mg Cap (Ptom ) 1 mg PO DAILY [facility] Last Admin: 03/31/21 09:39 Dose: Not Given Documented by: ARTURO Ondansetron HCl (Ondansetron 4 Mg/2 Ml Sdv) 4 mg IVPUSH Q4H PRN PRN Reason: Nausea/Vomiting Last Admin: 03/31/21 18:59 Dose: 4 mg Documented by: Admin: 03/30/21 12:53 Dose: 4 mg Documented by: NITA Oxycodone/Acetaminophen (Acetaminophen/Oxycodone 325-5 Mg Tab) 1 - 2 tab PO Q4H PRN PRN Reason: Pain Last Admin: 04/01/21 04:11 Dose: 1 tab Documented by: Admin: 03/31/21 16:56 Dose: 2 tab Documented by: Admin: 03/31/21 11:57 Dose: 2 tab Documented by: Admin: 03/31/21 07:57 Dose: 2 tab Documented by: Admin: 03/31/21 03:29 Dose: 2 tab Documented by: Admin: 03/30/21 20:14 Dose: 2 tab Documented by: Admin: 03/30/21 15:12 Dose: 2 tab Documented by: RIA Pravastatin Sodium (Pravastatin 20 Mg Tab) 20 mg PO BEDTIME [facility] Last Admin: 03/31/21 21:00 Dose: 20 mg Documented by: Admin: 03/30/21 20:18 Dose: 20 mg Documented by: GONZALEZ Tramadol HCl (Tramadol 50 Mg Tab) 50 mg PO Q6H PRN PRN Reason: Pain (mild 1-3) - Assessment Assessment (Free Text/Narrative):: Patient is a pleasant 76-year-old female, status post left total knee arthroplasty, postop day #2. No acute events overnight. Vitals have remained within acceptable limits. Did require 2L O2 intermittently throughout yesterday evening to maintain oxygen saturations >90%, has since been weaned to RA and maintaining oxygen saturations >90%. Patient weaned to oral medications for pain control yesterday, pain is well controlled with 2 tabs of 5mg-325 mg Percocet q4 hrs. Does endorse decreased appetite today. Friend has also noticed patient seems very "loopy" today, patient agrees she doesn't feel as clear headed as she normally does. Denied any further episodes of nausea or emesis. Denied lightheadedness or dizziness. Has participated in PT and OT daily; demonstrated competency completing ADLs using adaptive equipment. Was provided with a leg pedal assembler for home today by OT. Did progress ambulation abilities to 168 ft with FWW and 1 SBA. Does still need assistance with transitional positions and with guiding leg into and out of bed. Will also need to complete stairs with PT, as patient does have a few stairs in her house. Patient's home walker was brought into hospital today; will need to trial this and see if any adjustments are necessary to allow for safe ambulation at home. IV Saline locked on POD#1. Catheter discontinued on evening of POD #1. Dressing change performed by orthopedic provider on POD#2. Patient continues to require inpatient status at this time, as she needs additional therapy services to progress functional mobility of left leg and to trial stairs prior to discharge. Also requiring adjustment to current pain regimen, as she is having decreased appetite and some mild confusion. Exam: A&Ox3. Left LE neurovascular intact. Moderate postoperative diffuse swelling of left knee, + pedal edema. Incision is well approximated, dried drainage on steri strips above. No surrounding erythema, drainage, nor significant warmth to touch. Ecchymosis on medial knee and extending into thigh. Knee ROM: 4-80. Calf is soft and supple. Negative homans sign. Plan: * Participate in PT and OT services daily. * Will try reducing percocet from 2 to 1 tabs or tramadol prn for pain control to see if adequate pain control is achieved with improved appetite and more clear mentation. * Continue with 30 mg Lovenox qd for chemical DVT/VTE prophylaxis and bilateral LE SCDS for mechanical prophylaxis. * Dressing change was performed today; anticipate another dressing change by orthopedic provider prior to discharge. * Anticipate discharge to home with [facility] and PT services when patient is medically stable and functional mobility of LLE improves.
[2021-04-01] MEDS: Nozin Nasal Sanitizer NASBOTH SCH ×2 (10:01→20:08)
[2021-04-01] MEDS: Enoxaparin 30 MG/0.3 ML Syringe SUBCUT SCH (10:01)
[2021-04-01] MEDS: Loratadine 10 MG Tab PO SCH (10:02)
[2021-04-01] MEDS: Docusate Sodium 100 MG Cap PO SCH ×2 (10:02→20:09)
[2021-04-01] MEDS: Ascorbic Acid 500 MG Tab PO SCH (10:03)
[2021-04-01] MEDS: Niacin 250 MG Tab.ER PO SCH (10:03)
[2021-04-01] MEDS: Magnesium Oxide 400 MG Tab PO SCH (10:03)
[2021-04-01] MEDS: UBIDECARENONE 100 MG PO SCH (10:03)
[2021-04-01] MEDS: traMADol 50 MG Tab PO PRN (18:21)
[2021-04-01] MEDS: Pravastatin 20 MG Tab PO SCH (20:09)
[2021-04-01] MEDS: FLUoxetine 20 MG Cap PO SCH (20:09)
[2021-04-02] MEDS: traMADol 50 MG Tab PO PRN (03:28)
[2021-04-02] MEDS: Levothyroxine 50 MCG Tab PO SCH (08:12)
[2021-04-02] MEDS: Nozin Nasal Sanitizer NASBOTH SCH (08:12)
[2021-04-02] MEDS: Enoxaparin 30 MG/0.3 ML Syringe SUBCUT SCH (09:20)
[2021-04-02] MEDS: Magnesium Oxide 400 MG Tab PO SCH (09:20)
[2021-04-02] MEDS: Ascorbic Acid 500 MG Tab PO SCH (09:21)
[2021-04-02] MEDS: Loratadine 10 MG Tab PO SCH (09:21)
[2021-04-02] MEDS: Docusate Sodium 100 MG Cap PO SCH (09:21)
[2021-04-02] MEDS: Niacin 250 MG Tab.ER PO SCH (09:21)
[2021-04-02] MEDS: UBIDECARENONE 100 MG PO SCH (09:22)
[2021-04-02 10:22] VITALS: BP 148/80; PULSE 80
--- NOTE | 2021-04-02 12:45 | PCM.DCSUM1 ---
Discharge Summary - Hospital Course Brief History: Eneida 76 y/o female with history of chronic bilateral knee pain, left worse than right. Symptoms refractory to conservative management, elected to undergo total knee arthroplasty. Due to nickel allergy, an oxinium implant was used. Tolerated surgery well with no complications. No acute events during hospitalization. Inpatient stay prolonged to allow for additional physical therapy services to progress ambulation and functional mobility of left lower extremity for a safe discharge home Diagnosis: Stroke: No Modified Twiggs Scale: No Symptoms at All Modified Twiggs Scale Score: 0 - Discharge Data Discharge Date: 04/02/21 Discharge Disposition: Home, Home Health Agency 06 Condition: Good - Referral to Home Health Date of Face to Face Encounter: 04/02/21 Reason for Homebound Status: motivated to go home, has son staying with her through the weekend for additional support Primary Care Physician: LEXI Choi Skilled Need: physical therapy, ADLs, dressing changes - Discharge Diagnosis/Problem(s) (1) Status post total left knee replacement SNOMED Code(s): 4468933662280, [id number] ICD Code: Z96.652 - PRESENCE OF LEFT ARTIFICIAL KNEE JOINT Status: Acute Current Visit: Yes - Patient Summary/Data Operative Procedure(s) Performed: left total knee arthroplasty Consults: Consultations 03/30/21 10:07 Consult to Case Management/[employer] Spanish Teacher [CONS] Routine Comment: Physician Instructions: Service(s) to be Consulted: Case Management Reason for Consult: Plan for Discharge Special Instructions: anticipate d/c to home, home health services referral. Patient would prefer [facility] OT Evaluation and Treatment [CONS] Routine Please Evaluate and Treat. OT Reason for Consult: ADL's Special Instructions: s/p L TKA This query below is only for informational purposes and is not editable. PT Evaluation and Treatment [CONS] Routine Please Evaluate and Treat. PT Reason for Consult: Post op Ortho Surgery Special Instructions: s/p L TKA This query below is only for informational purposes and is not editable. PT Evaluation and Treatment [CONS] Routine Please Evaluate and Treat. PT Reason for Consult: Post op Ortho Surgery Knee Pending Discharge: Yes, 1- 2 days Special Instructions: Schedule first outpatient PT appointment in 3-5 day post discharge. This query below is only for informational purposes and is not editable. Hospital Course: Eneida 76-year-old female, underwent a left total knee arthroplasty on 03/30/2021. Patient tolerated surgery well with no complications. No acute events during hospitalization. Postop day #1 hemoglobin stable at 12.8. Patient denied any orthostatic hypotension, dizziness, dyspnea, chest pain, palpitations, nor subjective fevers or chills during hospitalization. Did have intermittent hypertension the evening of surgery and into postop day #1, blood pressures have since improved to within normal limits. Patient did require 2 L of oxygen intermittently throughout postop day #1 and #2 to maintain oxygen saturations above 90%. Has since been weaned to room air and maintaining oxygen saturations >90%. Pain has been adequately controlled throughout hospitalization. Patient was experiencing decreased appetite and some loopy feelings with the Percocet, so the transition was made to Tramadol. Patient maintained adequate pain control with tramadol with a more clear mentation than she was having the previous days on Percocet. One episode of nausea the afternoon following surgery, denied any further nausea or emesis. Did endorse decreased appetite throughout stay, appetite slightly improved on postop day #3 with transition to Tramadol. Patient participated in physical and occupational therapy daily. Ambulation abilities progressed nicely, ambulating up to 168 feet with four-wheel walker and standby assist. Did complete 3 stairs safely on POD#3. Does have pain with transitional positions and requires SBA. Demonstrated competency completing ADLs with adaptive equipment; a leg engineer exhauster was provided to patient to bring home. Maintenance fluids were saline locked on postop day #1. Taylor catheter discontinued the evening of postop day #1. Dressing change performed on postop day #2, #3. Patient showered the evening of POD#2. LLE Exam: Left lower extremity neurovascular intact. Incision well approximated, steristrips intact above with mild dried drainage. No surrounding erythema, nor active drainage. Moderate postoperative swelling and warmth of left knee. + Pedal edema. Ecchymosis present along knee extending to thigh. Calf is soft and supple. Negative homans. Knee ROM: 4-88. - Patient Instructions Diet: Usual Diet as Tolerated Activity: Apply Ice, Full Weight Bearing, Rest and Relax Today Driving: Do Not Drive Showering/Bathing: May Shower Wound/Incision Care: Keep Operative Site/Wound Site Clean and Dry Notify Provider of: Fever, Increased Pain, Swelling and Redness, Drainage - Discharge Plan *PRESCRIPTION DRUG MONITORING PROGRAM REVIEWED*: Yes *COPY OF PRESCRIPTION DRUG MONITORING REPORT IN PATIENT CORNELIUS: Not Applicable Prescriptions/Med Rec: Aspirin 325 mg PO BID #60 tablet traMADol [Ultram] 50 mg PO Q6H PRN #30 tablet PRN Reason: Pain Home Medications: Home Meds Ascorbic Acid 1,000 mg PO DAILY 04/12/14 [History] FLUoxetine HCl [Fluoxetine HCl] 20 mg PO BEDTIME 04/12/14 [History] Glucosam/Chond/Collagen/Hyalur [Glucosamine Chondroitin] 1 tab PO BID 04/12/14 [History] Levothyroxine Sodium [Levoxyl] 50 mcg PO DAILY 04/12/14 [History] Loratadine 10 mg PO DAILY 04/12/14 [History] Niacin 500 mg PO DAILY 04/12/14 [History] Aurora-3 Fatty Acids [Aurora-3] 1,000 mg PO DAILY 04/12/14 [History] Pravastatin [Pravachol] 20 mg PO BEDTIME 04/12/14 [History] Vitamin B Complex [B Complex] 1 tab PO DAILY 04/12/14 [History] Ubidecarenone [Co Q-10] 100 mg PO DAILY 04/16/20 [History] Acetaminophen [Tylenol] 650 mg PO Q6H 03/03/21 [History] Calcium Carbonate/Vitamin D3 [Calcium 600-Vit D3 800 Caplet] 1 tab PO DAILY 03/30/21 [History] Cholecalciferol (Vitamin D3) [Vitamin D3] 2,000 units PO DAILY 03/30/21 [History] Magnesium 250 mg PO DAILY 03/30/21 [History] Multivitamin 1 tab PO DAILY 03/30/21 [History] Aspirin 325 mg PO BID #60 tablet 04/02/21 [Rx] traMADol [Ultram] 50 mg PO Q6H PRN #30 tablet 04/02/21 [Rx] Oxygen Therapy Mode: Room Air Patient Handouts: Total Knee Replacement, Care After, [id number], Preventing Problems After Surgery, How to Prevent Constipation After Surgery Referrals: Zenobia Mcallister PA [Ordering Only Provider] - 04/14/21 1:00 pm (Please arrive 15 minutes early to register for your appointment. ) - Discharge Summary/Plan Comment DC Time >30 min.: No Total # of Minutes for Discharge Time: 20 mins spent reviewing DVT/VTE and SSI warning signs, avoiding constipation after surgery, and physical therapy activities to work on at home. Discharge Summary/Plan Comment: -Anticipate discharge to home today; does have her son staying with her through Tuesday. Has support from friends who will help with meals/laundry. Home health and physical therapy services through [facility] have been arranged to come out to patients house. -Prescription sent for pain control: 50 mg Tramadol q6 hrs prn. -Encouraged continuation of stool softener while on opioid pain medication. -Educated patient on warning signs of DVT/VTE and SSI; any concerns, she should contact the clinic or visit her local ER. -Educated to take 1 aspirin (81 mg or 325 mg) BID for DVT/VTE prophylaxis. -Continue with Nozin spray BID. -May shower; leave Steristrips on and let water run over the top. They will fall off in 5-7 days. Do not vigorously scrub incision, no submerging incision in bath water. Do not need to place dressing over incision, but may choose to do so if Steristrips are catching on clothing. -Follow up with orthopedics in 2 weeks; contact clinic with any concerns or questions that arise prior to scheduled apt. - General Info Date of Service: 04/02/21 Admission Dx/Problem (Free Text: knee joint operation Functional Status: Reports: Pain Controlled, Tolerating Diet, Ambulating (with FWW ), Urinating, Incentive Spirometry - Review of Systems General: Denies: Fever, Weakness, Fatigue, Malaise, Chills, Night Sweats Pulmonary: Denies: Shortness of Breath Cardiovascular: Denies: Chest Pain, Dyspnea on Exertion Gastrointestinal: Reports: Decreased Appetite Musculoskeletal: Reports: Joint Pain (left knee ), Joint Swelling (left knee ) Skin: Reports: Bruising Neurological: Reports: No Symptoms Psychiatric: Reports: No Symptoms - Patient Data Vitals - Most Recent: Last Vital Signs Temp 98.7 F 04/02/21 10:19 Pulse 80 04/02/21 10:19 Resp 18 04/02/21 10:19 BP 148/80 H 04/02/21 10:19 Pulse Ox 96 04/02/21 10:19 Weight - Most Recent: 206 lb 1.586 oz I&O - Last 24 hours: Intake & Output 09/08/2104/02/21 04/02/21 22:59 06:59 14:59 Intake Total 700 800 500 Output Total 500 800 700 Balance 200 0 -200 Med Orders - Current: Current Medications Acetaminophen (Acetaminophen 325 Mg Tab) 650 mg PO Q4H PRN PRN Reason: Pain/Fever Ascorbic Acid (Ascorbic Acid 500 Mg Tab) 1,000 mg PO DAILY [facility] Last Admin: 04/02/21 09:21 Dose: 1,000 mg Documented by: Bandage/Support Products (Nozin Nasal Electrical Engineering Intern) 1 applic NASBOTH BID [facility] Stop: 04/05/21 21:01 Last Admin: 04/02/21 08:12 Dose: 1 applic Documented by: Calcium Carbonate/Glycine (Calcium Carbonate 500 Mg Tab.Chew) 1,000 mg PO Q2H PRN PRN Reason: Indigestion Docusate Sodium (Docusate Sodium 100 Mg Cap) 100 mg PO BID [facility] Last Admin: 04/02/21 09:21 Dose: 100 mg Documented by: Enoxaparin Sodium (Enoxaparin 30 Mg/0.3 Ml Syringe) 30 mg SUBCUT DAILY [facility] Last Admin: 04/02/21 09:20 Dose: 30 mg Documented by: Fluoxetine HCl (Fluoxetine 20 Mg Cap) 20 mg PO BEDTIME [facility] Last Admin: 04/01/21 20:09 Dose: 20 mg Documented by: Ketorolac Tromethamine (Ketorolac 30 Mg/Ml Sdv) 15 mg IVPUSH Q8H PRN PRN Reason: Breakthrough Pain Stop: 04/04/21 10:08 Last Admin: 03/31/21 09:37 Dose: 15 mg Documented by: Levothyroxine Sodium (Levothyroxine 50 Mcg Tab) 50 mcg PO [facility]FAST [facility] Last Admin: 04/02/21 08:12 Dose: 50 mcg Documented by: Loratadine (Loratadine 10 Mg Tab) 10 mg PO DAILY [facility] Last Admin: 04/02/21 09:21 Dose: 10 mg Documented by: Magnesium Oxide (Magnesium Oxide 400 Mg Tab) 200 mg PO DAILY [facility] Last Admin: 04/02/21 09:20 Dose: 200 mg Documented by: Morphine Sulfate (Morphine 2 Mg/Ml Syringe) 1 mg IVPUSH Q1H PRN PRN Reason: Breakthrough Pain Last Admin: 03/30/21 14:22 Dose: 1 mg Documented by: Niacin (Niacin 250 Mg Tab.Er) 500 mg PO DAILY [facility] Last Admin: 04/02/21 09:21 Dose: 500 mg Documented by: Ubidecarenone [Co Q- 10] 100 Mg Cap (Ptom ) 1 mg PO DAILY [facility] Last Admin: 04/02/21 09:22 Dose: Not Given Documented by: Ondansetron HCl (Ondansetron 4 Mg/2 Ml Sdv) 4 mg IVPUSH Q4H PRN PRN Reason: Nausea/Vomiting Last Admin: 03/31/21 18:59 Dose: 4 mg Documented by: Oxycodone/Acetaminophen (Acetaminophen/Oxycodone 325-5 Mg Tab) 1 - 2 tab PO Q4H PRN PRN Reason: Pain Last Admin: 04/01/21 12:03 Dose: 2 tab Documented by: Pravastatin Sodium (Pravastatin 20 Mg Tab) 20 mg PO BEDTIME [facility] Last Admin: 04/01/21 20:09 Dose: 20 mg Documented by: Tramadol HCl (Tramadol 50 Mg Tab) 50 mg PO Q6H PRN PRN Reason: Pain (mild 1-3) Last Admin: 04/02/21 03:28 Dose: 50 mg Documented by: Discontinued Medications Fentanyl (Fentanyl 100 Mcg/2 Ml Sdv) Confirm Administered Dose 100 mcg .ROUTE .STK-MED ONE Stop: 03/30/21 07:18 Cefazolin Sodium/Dextrose 2 gm (/ Premix) 50 mls @ 100 mls/hr IV ONETIME ONE Stop: 03/30/21 07:59 Last Admin: 03/30/21 08:05 Dose: 100 mls/hr Documented by: Lactated Ringer's (Ringers, Lactated) 1,000 mls @ 75 mls/hr IV ASDIRECTED [facility] Last Admin: 03/30/21 07:04 Dose: 75 mls/hr Documented by: Tranexamic Acid 1,000 mg/ (Sodium Chloride) 60 mls @ 240 mls/hr IV ONETIME ONE Stop: 03/30/21 07:59 Last Admin: 03/30/21 08:35 Dose: 240 mls/hr Documented by: Lactated Ringer's (Ringers, Lactated) Confirm Administered Dose 1,000 mls @ as directed .ROUTE .STK-MED ONE Stop: 03/30/21 08:47 Sodium Chloride (Normal Saline) 1,000 mls @ 125 mls/hr IV ASDIRECTED [facility] Last Admin: 03/30/21 20:31 Dose: 125 mls/hr Documented by: Cefazolin Sodium/Dextrose 1 gm (/ Premix) 50 mls @ 100 mls/hr IV Q8H [facility] Stop: 03/31/21 08:29 Last Admin: 03/31/21 07:56 Dose: 100 mls/hr Documented by: Midazolam HCl (Midazolam 1 Mg/Ml 2 Ml Sdv) Confirm Administered Dose 2 mg .ROUTE .STK-MED ONE Stop: 03/30/21 07:18 Oxycodone/Acetaminophen (Acetaminophen/Oxycodone 325-5 Mg Tab) 1 tab PO Q4H PRN PRN Reason: Pain Last Admin: 03/30/21 11:10 Dose: 1 tab Documented by: Povidone Iodine (Povidone-Iodine 10% Soln 118.25 Ml Bottle) Confirm Administered Dose 1 ml .ROUTE .STK-MED ONE Stop: 03/30/21 06:39 Last Admin: 03/30/21 08:50 Dose: 30 ml Documented by: Propofol (Propofol 200 Mg/20 Ml Sdv) Confirm Administered Dose 200 mg .ROUTE .STK-MED ONE Stop: 03/30/21 07:18 Propofol (Propofol 200 Mg/20 Ml Sdv) Confirm Administered Dose 200 mg .ROUTE .STK-MED ONE Stop: 03/30/21 07:20 Propofol (Propofol 200 Mg/20 Ml Sdv) Confirm Administered Dose 200 mg .ROUTE .STK-MED ONE Stop: 03/30/21 09:27 - Exam General: Reports: Alert, Oriented, Cooperative, No Acute Distress Extremities: Normal Capillary Refill, Pedal Edema, Joint Swelling (left knee ), Teresita's Sign, Leg Pain, Limited Range of Motion (left knee, postoperative swelling ) Skin: Reports: Warm, Dry, Intact, Ecchymosis Wound/Incisions: Reports: Healing Well, Dressing Dry and Intact, No Drainage Neurological: Reports: No New Focal Deficit Psy/Mental Status: Reports: Alert, Normal Affect, Normal Mood
--- NOTE | 2021-04-21 07:59 | OR ---
DATE OF PROCEDURE: 03/30/2021 SURGEON: Jalil Vasquez MD PREOPERATIVE DIAGNOSIS: Severe osteoarthritis, left knee. POSTOPERATIVE DIAGNOSIS: Severe osteoarthritis, left knee. PROCEDURE: Left total knee arthroplasty using Oxinium components by [employer] with a size 5 femur, size 4 tibia, 9 mm polyethylene, and 32 mm patella. FASHION MARKETER: LEXI Bustos ANESTHESIA: Spinal with sedation. INDICATIONS: Terrie is a pleasant 76-year-old female with history of progressive left knee pain for the past couple of years. Now gotten to the point of interfering with activities of daily living. X-rays and examination are consistent with severe osteoarthritis of the left knee. She does have a history of nickel allergy and Oxinium components are utilized. Risks, benefits and potential complications of the procedure were discussed. mechanic assistant services were utilized. LEXI Bustos, for retraction, exposure, leg manipulation and assistance with closure. DESCRIPTION OF PROCEDURE: After adequate anesthesia was obtained, patient was placed supine with the tourniquet about the left upper leg. Leg was prepped and draped in sterile fashion. Leg was exsanguinated and tourniquet inflated to 300 mmHg pressure. A longitudinal anterior incision was made and carried down through the subcutaneous tissues and hemostasis obtained with electrocautery. Medial parapatellar approach was utilized. A portion of the fat pad was excised along with synovium surrounding the patella. The patella was partially everted, held with clamps, and the posterior aspect of the patella was resected with an oscillating saw. Intramedullary canal of the femur was drilled and intramedullary guide was placed for distal femoral cut. Extramedullary tibial jig was then placed, this was aligned and secured and the proximal tibia was resected and this was removed along with both menisci. Attention was returned to the femur which was sized, the appropriate cutting jig was secured, and remaining anterior posterior and chamfer cuts were made. Intercondylar notch cut was then made for a posterior cruciate-sacrificing component. Trial component was placed with good fit. Tibia was then sized, baseplate was pinned in position, and tibial preparation was completed. Trial reduction was then done with a 9 mm insert showing full extension, good balance in flexion and extension. The patella tracked slightly lateral and lateral release was performed. The trials were removed. The wound was thoroughly irrigated with pulse lavage. The bone surfaces were dried and the components were cemented in place, excess cement was removed, and the knee was held in full extension with a 9 mm trial as the cement cured. Knee was again taken through range of motion, found to be very stable with full extension and flexion easily to 130 degrees. Trial was removed, knee was irrigated, and the final polyethylene was positioned. The wound was then irrigated with a dilute Betadine solution which was left in place for 2.5 minutes followed by pulse lavage irrigation. Incision was closed with #2 Ethibond in the capsular layer, 2-0 Vicryl subcutaneous tissue and a running 3-0 Monocryl subcu. Steri-Strips were applied. Sterile dressing was then placed. The patient tolerated procedure very well. There were no complications. She was taken from the operating room in stable condition. Jalil Vasquez MD /[id number]
== END 2021-04-02 13:54 | disposition home or self-care (01) | DRG 554 ==
LOC: JP.SDS 06:00 → JP.MS 10:07 → JP.SDS 10:07 → JP.MS 03-31 08:18 → JP.SDS 03-31 10:07 → JP.MS 03-31 10:07 → UNDOADMIN 03-31 10:07 → JP.MS 03-31 10:07 → UNDODISIN 04-02 13:54
PROVIDERS: ADMIT Specialist; ATTEND Specialist
DX: M17.0 Bilateral primary osteoarthritis of knee (principal); F41.9 Anxiety disorder, unspecified; F32.9 Major depressive disorder, single episode, unspecified; M17.12 Unilateral primary osteoarthritis, left knee; F41.8 Other specified anxiety disorders; G89.29 Other chronic pain; M54.9 Dorsalgia, unspecified; E78.00 Pure hypercholesterolemia, unspecified; E78.5 Hyperlipidemia, unspecified; Z87.440 Personal history of urinary (tract) infections; Z86.010 Personal history of colon polyps; Z90.710 Acquired absence of both cervix and uterus; Z98.51 Tubal ligation status; E03.9 Hypothyroidism, unspecified; H54.7 Unspecified visual loss; Z79.82 Long term (current) use of aspirin; Z88.5 Allergy status to narcotic agent; Z88.8 Allergy status to other drugs, medicaments and biological substances; Z68.37 Body mass index [BMI] 37.0-37.9, adult; E66.9 Obesity, unspecified; Z79.890 Hormone replacement therapy; Z79.899 Other long term (current) drug therapy; Z88.6 Allergy status to analgesic agent
CPT/HCPCS: 36415; 73560-26-LT; 73560-LT; 85027; 86850; 86900; 86901; 97110-GP; 97162-GP; 97165-GO; 97530-GP; 97535-GO; 97535-GP; A9270-GY; C1713; J0690; J1650; J1885; J2250; J2270; J2405; J2704; J3010; J7030; J7120

== ENCOUNTER 2021-11-09 07:57 | Inpatient (IN) | payer MEDICARE, BC ==
[2021-11-09] MEDS ORDERED: Nozin Nasal Sanitizer NASBOTH SCH (08:00)
[2021-11-09] MEDS ORDERED: Lactated Ringers 1,000 ML IV SCH (08:00)
[2021-11-09] MEDS ORDERED: Midazolam 1 MG/ML 2 ML SDV ONE (08:16)
[2021-11-09] MEDS ORDERED: Propofol 200 MG/20 ML SDV ONE ×2 (08:16→08:30)
[2021-11-09] MEDS ORDERED: fentaNYL 100 MCG/2 ML SDV ONE (08:16)
[2021-11-09] MEDS ORDERED: Tranexamic Acid 960 MG in Sodium Chloride 0.9% 50 ML IV ONE (09:30)
[2021-11-09] MEDS ORDERED: Bupivacaine 0.5% 50 ML MDV ONE (10:23)
[2021-11-09] MEDS ORDERED: fentaNYL 250 MCG/5 ML SDV ONE ×2 (11:04→11:14)
[2021-11-09] MEDS ORDERED: Ondansetron 4 MG/2 ML SDV ONE (11:05)
[2021-11-09] MEDS ORDERED: Dexamethasone 4 MG/ML SDV ONE (11:05)
[2021-11-09] MEDS ORDERED: Glycopyrrolate 0.2 MG/ML 5 ML MDV ONE (11:05)
[2021-11-09] MEDS ORDERED: Succinylcholine 200 MG/10 ML MDV ONE (11:05)
[2021-11-09] MEDS ORDERED: Neostigmine Methylsulfate 1 MG/ML 5 ML Syringe ONE (11:05)
[2021-11-09] MEDS ORDERED: Rocuronium 50 MG/5 ML Vial ONE (11:05)
[2021-11-09] MEDS ORDERED: ePHEDrine 50 MG/ML SDV ONE (11:28)
[2021-11-09] MEDS ORDERED: Morphine 2 MG/ML SYRINGE IVPUSH PRN (12:42)
[2021-11-09] MEDS ORDERED: Magnesium Hydroxide 400 MG/5 ML Susp 30 ML Cup PO PRN (12:42)
[2021-11-09] MEDS: Ketorolac 30 MG/ML SDV IVPUSH SCH ×2 (14:48→21:47)
[2021-11-09] MEDS: Acetaminophen 325 MG Tab PO SCH ×2 (14:48→19:53)
[2021-11-09] MEDS: ceFAZolin 1 GM in Premix Bag 1 BAG IV SCH (17:37)
[2021-11-09] MEDS: traMADol 50 MG Tab PO PRN (17:38)
[2021-11-09] MEDS: Sodium Chloride 0.9% 1,000 ML IV SCH (19:39)
[2021-11-09] MEDS: Nozin Nasal Sanitizer NASBOTH SCH (21:45)
[2021-11-09] MEDS: Pravastatin 20 MG Tab PO SCH (21:46)
[2021-11-09] MEDS: FLUoxetine 20 MG Cap PO SCH (21:46)
[2021-11-09] MEDS: Aspirin 325 MG Tab.EC PO SCH (21:46)
[2021-11-09] MEDS: Docusate Sodium 100 MG Cap PO SCH (21:46)
[2021-11-09] MEDS: Acetaminophen/oxyCODONE 325-5 MG Tab PO PRN (22:13)
[2021-11-10] MEDS: Acetaminophen 325 MG Tab PO SCH ×4 (02:42→20:01)
[2021-11-10] MEDS: ceFAZolin 1 GM in Premix Bag 1 BAG IV SCH ×2 (02:43→09:11)
[2021-11-10] MEDS: Sodium Chloride 0.9% 1,000 ML IV SCH ×2 (04:20→13:09)
[2021-11-10] MEDS: Ketorolac 30 MG/ML SDV IVPUSH SCH (05:25)
[2021-11-10] MEDS: Levothyroxine 50 MCG Tab PO SCH (07:30)
[2021-11-10] MEDS: traMADol 50 MG Tab PO PRN ×3 (08:42→17:56)
[2021-11-10] MEDS: Magnesium Oxide 400 MG Tab PO SCH (08:43)
[2021-11-10] MEDS: Aspirin 325 MG Tab.EC PO SCH ×2 (08:43→21:08)
[2021-11-10] MEDS: Loratadine 10 MG Tab PO SCH (08:43)
[2021-11-10] MEDS: Docusate Sodium 100 MG Cap PO SCH ×2 (08:43→21:07)
[2021-11-10] MEDS: Nozin Nasal Sanitizer NASBOTH SCH ×2 (08:44→20:01)
[2021-11-10] MEDS: CO Q10 100 MG PO SCH (08:44)
[2021-11-10] MEDS: Acetaminophen/oxyCODONE 325-5 MG Tab PO PRN ×2 (10:08→21:05)
[2021-11-10] MEDS: Pravastatin 20 MG Tab PO SCH (21:08)
[2021-11-10] MEDS: FLUoxetine 20 MG Cap PO SCH (21:09)
[2021-11-11] MEDS: Acetaminophen 325 MG Tab PO SCH ×4 (03:02→20:47)
[2021-11-11] MEDS: Levothyroxine 50 MCG Tab PO SCH (07:39)
[2021-11-11] MEDS: traMADol 50 MG Tab PO PRN ×3 (07:42→22:37)
[2021-11-11] MEDS: Nozin Nasal Sanitizer NASBOTH SCH ×2 (09:55→20:47)
[2021-11-11] MEDS: CO Q10 100 MG PO SCH (09:56)
[2021-11-11] MEDS ORDERED: Ondansetron 4 MG Tab.DIS PO PRN (10:58)
[2021-11-11] MEDS: Loratadine 10 MG Tab PO SCH (15:10)
[2021-11-11] MEDS: Magnesium Oxide 400 MG Tab PO SCH (15:10)
[2021-11-11] MEDS: Docusate Sodium 100 MG Cap PO SCH ×2 (15:10→20:47)
[2021-11-11] MEDS: Aspirin 325 MG Tab.EC PO SCH ×2 (15:10→20:47)
[2021-11-11] MEDS: Pravastatin 20 MG Tab PO SCH (20:47)
[2021-11-11] MEDS: FLUoxetine 20 MG Cap PO SCH (20:48)
[2021-11-12] MEDS: Acetaminophen 325 MG Tab PO SCH ×2 (01:59→09:18)
[2021-11-12] MEDS: Loratadine 10 MG Tab PO SCH (09:18)
[2021-11-12] MEDS: traMADol 50 MG Tab PO PRN (09:18)
[2021-11-12] MEDS: Aspirin 325 MG Tab.EC PO SCH (09:18)
[2021-11-12] MEDS: Nozin Nasal Sanitizer NASBOTH SCH (09:18)
[2021-11-12] MEDS: Levothyroxine 50 MCG Tab PO SCH (09:18)
[2021-11-12] MEDS: Docusate Sodium 100 MG Cap PO SCH (09:19)
[2021-11-12] MEDS: Magnesium Oxide 400 MG Tab PO SCH (09:19)
[2021-11-12] MEDS: CO Q10 100 MG PO SCH (09:19)
[2021-11-12 10:03] VITALS: BP 125/56; PULSE 85
== END 2021-11-12 13:41 | disposition home health service (06) | DRG 470 ==
LOC: JP.SDS 07:57 → JP.MS 13:44 → JP.SDS 11-10 10:30 → JP.MS 11-10 10:30
PROVIDERS: ADMIT Specialist; ATTEND Specialist
PROC: 0SRC069 Replacement of Right Knee Joint with Oxidized Zirconium on Polyethylene Synthetic Substitute, Cemented, Open Approach (ICD-10-PCS; principal; 2021-11-09)
DX: M17.11 Unilateral primary osteoarthritis, right knee (principal); I10 Essential (primary) hypertension; F32.A Depression, unspecified; Z88.5 Allergy status to narcotic agent
CPT/HCPCS: 27447; 36415; 73560-26-RT; 73560-RT; 80053; 85027; 93005; 93010; 97110-GP; 97116-GP; 97140-GP; 97161-GP; 97165-GO; 97530-GP; A9270-GY; C1713; C1776; J0330; J0690; J1100; J1885; J2250; J2405; J2704; J2710; J3010; J3490; J7030; J7120; Q0162